=== PATIENT | male | born 1945 | race Caucasian/White ===

== ENCOUNTER 2017-07-14 20:30 | Outpatient (CLI) | payer MEDICARE | END 2017-07-14 20:31 | disposition home or self-care (01) | LOC: SLEEPLAB 20:30 | PROVIDERS: ATTEND Internal Medicine Critical Care Medicine | DX: G47.33 Obstructive sleep apnea (adult) (pediatric) (principal); E66.9 Obesity, unspecified; I10 Essential (primary) hypertension; K21.9 Gastro-esophageal reflux disease without esophagitis; I25.10 Atherosclerotic heart disease of native coronary artery without angina pectoris | CPT/HCPCS: 95811 ==

== ENCOUNTER 2017-08-17 08:52 | Emergency (ER) | payer MEDICARE ==
[2017-08-17 09:44] LABS: Anion Gap 14 mmol/L (10-20); BUN (Urea Nitrogen) 20 mg/dL (8.4-25.7); Calc. Creatinine Clearance 0 mL/min (70-130); Calcium 9.5 mg/dL (7.8-10.44); Carbon Dioxide 25 mmol/L (23-31); Chloride 104 mmol/L (98-107); Estimated GFR-MDRD 56; Glucose 123 mg/dL (83-110); Potassium 4.2 mmol/L (3.5-5.1); Sodium 139 mmol/L (136-145); Uric Acid 8.2 mg/dL (3.5-7.2)
[2017-08-17] MEDS ORDERED: Colchicine 0.6 MG TAB ONE (09:56)
== END 2017-08-17 10:08 | disposition home or self-care (01) ==
LOC: SCSER 08:52
DX: M10.9 Gout, unspecified (principal); I25.10 Atherosclerotic heart disease of native coronary artery without angina pectoris; I10 Essential (primary) hypertension; Z79.82 Long term (current) use of aspirin; Z79.899 Other long term (current) drug therapy
CPT/HCPCS: 36415; 80048; 84550; 86140; 99283

== ENCOUNTER 2018-08-22 08:59 | Outpatient (CLI) | payer MEDICARE ==
--- NOTE | 2018-08-22 09:28 | RAD ---
LEFT HIP TWO VIEWS: History: Left hip pain, unspecified osteoarthritis. FINDINGS/IMPRESSION: There are mild to moderate degenerative changes. No fracture, dislocation, or bony destruction is herrera ntified. POS: OFF
== END 2018-08-22 09:00 | disposition home or self-care (01) ==
LOC: BICRAD 08:59
PROVIDERS: ATTEND Anesthesiology Pain Medicine
DX: M16.12 Unilateral primary osteoarthritis, left hip (principal)

== ENCOUNTER 2020-06-30 14:31 | Outpatient (CLI) | payer MEDICARE ==
--- NOTE | 2020-06-30 16:04 | MRI ---
Exam: MRI cervical spine without contrast HISTORY: Neck pain, radiating to both shoulders x1 year. Spondylosis. COMPARISON: None FINDINGS: Appropriate T1 marrow signal intensity of the cervical vertebra. Cervical spine vertebral body heigh t is maintained. No fracture. No significant STIR hyperintensity to suggest vertebral body edema or ligamentous injury Visualized brain parenchyma, cervicomedullary junction, cervical cord and the upper thoracic cord hav e a normal size and signal intensity C2-C3: Disc desiccation without significant loss of disc space height. Central disc herniation. Mild central canal stenosis. Patent bilateral neural foramina C3-C4: Disc desiccation with severe loss of disc space height. Broad-based disc osteophyte complex. Moderate central canal stenosis. Mild to moderate bilateral neural foraminal narrowing due to uncovertebral hypertrophy. C4-C5: Disc desiccation without significant loss of disc space height. Broad-based disc bulge abuts t he thecal sac. Mild central canal stenosis. Mild bilateral neural foraminal narrowing due to uncal vertebral hypertrophy C5-C6: Disc desiccation with severe loss of disc space height. Broad-based disc osteophyte complex wi th moderate central canal stenosis. Moderate to severe right and mild left neural foraminal narrowing due to uncovertebral hypertrophy C6-C7: Disc desiccation without significant loss of disc space height. Broad-based disc bulge. No sig nificant central canal stenosis. Patent bilateral neural foraminal C7-T1: Disc desiccation without significant loss of disc space height. No significant central canal s tenosis or significant neural foraminal narrowing Spondylolisthesis: C3-C4: 2.2 mm of retrolisthesis C6-C7: 2.1 mm of anterolisthesis IMPRESSION: Multilevel degenerative changes of the cervical spine as described above. Transcribed Date/Time: 06/30/2020 4:21 PM
== END 2020-06-30 14:32 | disposition home or self-care (01) ==
LOC: BICMRI 14:31
PROVIDERS: ATTEND Nurse Practitioner Family
DX: M47.812 Spondylosis without myelopathy or radiculopathy, cervical region (principal)
CPT/HCPCS: 72141

== ENCOUNTER 2020-10-24 10:30 | Outpatient (CLI) | payer MEDICARE | END 2020-10-24 10:31 | disposition home or self-care (01) | LOC: BICRAD 10:30 | PROVIDERS: ATTEND Anesthesiology Pain Medicine | DX: M54.5 Low back pain (principal); M43.17 Spondylolisthesis, lumbosacral region; M43.8X6 Other specified deforming dorsopathies, lumbar region; I70.209 Unspecified atherosclerosis of native arteries of extremities, unspecified extremity; M47.816 Spondylosis without myelopathy or radiculopathy, lumbar region; Z96.642 Presence of left artificial hip joint; W19.XXXA Unspecified fall, initial encounter | CPT/HCPCS: 72110; 72170; 72220 ==

== ENCOUNTER 2022-04-09 08:07 | Observation (INO) | payer MEDICARE ==
[2022-04-09 08:51] LABS: #Eosinphils 0.3 thou/uL (0.0-0.7); #Lymphocytes 1.4 thou/uL (1.20-3.40); #Monocytes 0.5 thou/uL (0.11-0.59); #Neutrophils 4.1 thou/uL (1.40-6.50); %Basophils 0.1 % (0.0-1.0); %Eosinophils 4.2 % (0.0-10.0); %Monocytes 8.1 % (0.0-10.0); %Neutrophils 65.5 % (42.0-75.0); Hemoglobin 9.6 g/dL (14.0-18.0); Mean Corpuscular HGB CONC 30.3 g/dL (32.0-36.0); Mean Corpuscular Hemoglobin 25.5 pg (27.0-31.0); Mean Corpuscular Volume 84.2 fL (78.0-98.0); Mean Platelet Volume 7.9 fL (7.4-10.4); Platelet Count 149 thou/uL (130-400); RBC Distribution Width 13.5 % (11.5-14.5); Red Blood Cell (RBC) Count 3.75 mill/uL (4.70-6.10); White Blood Cell (WBC) Count 6.2 thou/uL (4.8-10.8)
[2022-04-09 09:10] LABS: ALT (SGPT) 12 U/L (8-55); AST (SGOT) 19 U/L (5-34); Albumin 3.9 g/dL (3.4-4.8); Alkaline Phosphatase 90 U/L (40-110); Anion Gap 12 mmol/L (10-20); BUN (Urea Nitrogen) 14 mg/dL (8.4-25.7); Bilirubin, Total 0.7 mg/dL (0.2-1.2); Calc. Creatinine Clearance 0 mL/min (70-130); Calcium 8.8 mg/dL (7.8-10.44); Carbon Dioxide 22 mmol/L (23-31); Chloride 107 mmol/L (98-107); Estimated GFR 90; Globulin 3.5 g/dL (2.4-3.5); Glucose 113 mg/dL (83-110); Protein, Total 7.4 g/dL (5.8-8.1); Sodium 137 mmol/L (136-145)
[2022-04-09 09:37] LABS: Bilirubin Negative (Negative); Blood, Urine Negative (Negative); Clarity Clear (Clear); Glucose, Urine (Dipstick) Normal (Negative); Ketone, Urine Negative (Negative); Leukocyte Negative Leu/uL (Negative); Nitrite Negative (Negative); Protein, Urine (Dipstick) Negative (Neg-Trace); Specific Gravity, Urine 1.014 (1.002-1.036); Urobilinogen Normal mg/dL (Less than 2)
[2022-04-09] MEDS ORDERED: Ondansetron PF 4 MG/2 ML Vial IVP PRN (13:15)
[2022-04-09] MEDS ORDERED: Senokot S 8.6-50 MG TAB PO PRN (13:15)
[2022-04-09] MEDS ORDERED: Ondansetron ODT 4 MG TAB PO PRN (13:15)
[2022-04-09 13:38] LABS: SARS-CoV-2 NAA Rapid Test Not Detected (NotDetected)
[2022-04-09] MEDS ORDERED: Nitroglycerin 0.4 MG TAB (25 Tab Bottle) SL PRN (13:46)
[2022-04-09 17:34] VITALS: BMI 28.5
[2022-04-09] MEDS ORDERED: Pitavastatin Calcium 2 MG TAB PO SCH (21:00)
[2022-04-09] MEDS ORDERED: Non-Formulary Item 1 EACH (Esomeprazole Magnesium [Nexium] 20 MG Capsule.Dr) PO SCH (21:00)
[2022-04-09] MEDS: Carvedilol 6.25 MG TAB PO SCH (21:20)
[2022-04-09] MEDS: Atorvastatin Calcium 20 MG TAB PO SCH (21:20)
[2022-04-09] MEDS: Apixaban 5 MG TAB PO SCH (21:21)
[2022-04-09] MEDS: Fish Oil 1,000 MG CAP PO SCH (21:21)
[2022-04-10 05:22] LABS: #Eosinphils 0.3 thou/uL (0.0-0.7); #Lymphocytes 1.8 thou/uL (1.20-3.40); #Monocytes 0.8 thou/uL (0.11-0.59); #Neutrophils 3.6 thou/uL (1.40-6.50); %Basophils 0.5 % (0.0-1.0); %Eosinophils 4.2 % (0.0-10.0); %Lymphocytes 27.6 % (21.0-51.0); %Monocytes 11.9 % (0.0-10.0); %Neutrophils 55.8 % (42.0-75.0); Hemoglobin 8.6 g/dL (14.0-18.0); Mean Corpuscular HGB CONC 30.6 g/dL (32.0-36.0); Mean Corpuscular Hemoglobin 25.8 pg (27.0-31.0); Mean Corpuscular Volume 84.3 fl (78.0-98.0); Platelet Count 151 thou/uL (130-400); RBC Distribution Width 13.6 % (11.5-14.5); Red Blood Cell (RBC) Count 3.34 mill/uL (4.70-6.10); White Blood Cell (WBC) Count 6.4 thou/uL (4.8-10.8)
[2022-04-10 05:47] LABS: Anion Gap 11 mmol/L (10-20); BUN (Urea Nitrogen) 13 mg/dL (8.4-25.7); Calc. Creatinine Clearance 102 mL/min (70-130); Calcium 8.9 mg/dL (7.8-10.44); Carbon Dioxide 25 mmol/L (23-31); Cardiac Risk 2.5 (Less than 4.5); Chloride 105 mmol/L (98-107); Cholesterol 116 mg/dl (< 200 Desired); Estimated GFR 91; Glucose 114 mg/dL (83-110); HDL Cholesterol 47 mg/dL (>60 Neg Risk); LDL Cholesterol, Calculated 57 mg/dL; Sodium 137 mmol/L (136-145); Triglycerides 62 mg/dL (Less than 150)
[2022-04-10] MEDS: Carvedilol 6.25 MG TAB PO SCH ×2 (09:40→21:35)
[2022-04-10] MEDS: Aspirin 81 mg Enteric Coated Tablet PO SCH (09:42)
[2022-04-10] MEDS: Allopurinol 300 MG TAB PO SCH (09:42)
[2022-04-10] MEDS: Apixaban 5 MG TAB PO SCH ×2 (09:42→21:34)
[2022-04-10] MEDS: Acetaminophen 325 MG TAB PO PRN (16:03)
[2022-04-10] MEDS: Atorvastatin Calcium 20 MG TAB PO SCH (21:34)
[2022-04-10] MEDS: Fish Oil 1,000 MG CAP PO SCH (21:35)
[2022-04-11 05:21] LABS: #Eosinphils 0.3 thou/uL (0.0-0.7); #Monocytes 0.8 thou/uL (0.11-0.59); #Neutrophils 3.6 thou/uL (1.40-6.50); %Basophils 0.4 % (0.0-1.0); %Eosinophils 4.6 % (0.0-10.0); %Lymphocytes 29.4 % (21.0-51.0); %Monocytes 11.2 % (0.0-10.0); %Neutrophils 54.4 % (42.0-75.0); Mean Corpuscular Volume 83.9 fl (78.0-98.0); Platelet Count 153 thou/uL (130-400); RBC Distribution Width 13.7 % (11.5-14.5); Red Blood Cell (RBC) Count 3.45 mill/uL (4.70-6.10); White Blood Cell (WBC) Count 6.7 thou/uL (4.8-10.8)
[2022-04-11 06:52] LABS: Anion Gap 13 mmol/L (10-20); BUN (Urea Nitrogen) 10 mg/dL (8.4-25.7); Calc. Creatinine Clearance 97 mL/min (70-130); Calcium 8.8 mg/dL (7.8-10.44); Carbon Dioxide 24 mmol/L (23-31); Chloride 104 mmol/L (98-107); Estimated GFR 90; Glucose 111 mg/dL (83-110); Potassium 3.6 mmol/L (3.5-5.1); Sodium 137 mmol/L (136-145)
[2022-04-11 07:53] VITALS: TEMP 98.3
[2022-04-11] MEDS: Allopurinol 300 MG TAB PO SCH (08:28)
[2022-04-11] MEDS: Aspirin 81 mg Enteric Coated Tablet PO SCH (08:28)
[2022-04-11] MEDS: Apixaban 5 MG TAB PO SCH (08:28)
[2022-04-11] MEDS: Carvedilol 6.25 MG TAB PO SCH (08:28)
[2022-04-11 08:29] VITALS: BP 152/74
[2022-04-11] MEDS: Acetaminophen 325 MG TAB PO PRN (09:16)
== END 2022-04-11 11:45 | disposition home or self-care (01) ==
LOC: ERS 08:07 → ERHOLD 12:38 → NEURO 16:57
PROVIDERS: ADMIT Internal Medicine; ATTEND Internal Medicine
DX: R42 Dizziness and giddiness (principal); D64.9 Anemia, unspecified; R73.9 Hyperglycemia, unspecified; I10 Essential (primary) hypertension; I48.20 Chronic atrial fibrillation, unspecified; K21.9 Gastro-esophageal reflux disease without esophagitis; I25.10 Atherosclerotic heart disease of native coronary artery without angina pectoris; E78.5 Hyperlipidemia, unspecified; I08.8 Other rheumatic multiple valve diseases; Z79.01 Long term (current) use of anticoagulants; Z79.82 Long term (current) use of aspirin; Z79.899 Other long term (current) drug therapy; Z88.5 Allergy status to narcotic agent; Z91.048 Other nonmedicinal substance allergy status; Z95.0 Presence of cardiac pacemaker; Z95.5 Presence of coronary angioplasty implant and graft; Z20.822 Contact with and (suspected) exposure to COVID-19
CPT/HCPCS: 70450; 70551; 71045; 80048 ×2; 80053; 80061; 81003; 84484; 85025 ×3; 93005; 93306; 93880; 99285; G0378 ×4; U0002; 36415

== ENCOUNTER 2024-07-08 10:14 | Emergency (ER) | payer MEDICARE | END 2024-07-08 13:53 | disposition home or self-care (01) | LOC: ERS 10:14 | DX: S01.112A Laceration without foreign body of left eyelid and periocular area, initial encounter (principal); I10 Essential (primary) hypertension; I25.10 Atherosclerotic heart disease of native coronary artery without angina pectoris; Z55.0 Illiteracy and low-level literacy; W01.10XA Fall on same level from slipping, tripping and stumbling with subsequent striking against unspecified object, initial encounter; Y93.01 Activity, walking, marching and hiking | CPT/HCPCS: 70450; 70486; 72125; G0390 ==

== ENCOUNTER 2024-07-10 19:16 | Emergency (ER) | payer MEDICARE ==
[2024-07-10] MEDS ORDERED: Tranexamic Acid 1,000 MG/10 ML VIAL ONE (22:20)
[2024-07-10] MEDS ORDERED: Lidocaine 1% w/Epinephrine 1:100K 20 ML VIAL ONE (22:20)
[2024-07-10] MEDS ORDERED: Acetaminophen 500 MG TAB ONE (22:20)
[2024-07-10] MEDS ORDERED: Bacitracin 1 PK ONE (23:23)
== END 2024-07-10 23:41 | disposition home or self-care (01) ==
LOC: ERS 19:16
DX: S01.111A Laceration without foreign body of right eyelid and periocular area, initial encounter (principal); I10 Essential (primary) hypertension; I25.10 Atherosclerotic heart disease of native coronary artery without angina pectoris; I48.91 Unspecified atrial fibrillation; Z79.01 Long term (current) use of anticoagulants; W01.198A Fall on same level from slipping, tripping and stumbling with subsequent striking against other object, initial encounter; Y93.89 Activity, other specified; Y92.481 Parking lot as the place of occurrence of the external cause

== ENCOUNTER 2024-07-15 14:30 | Emergency (ER) | payer MEDICARE | END 2024-07-15 17:14 | disposition home or self-care (01) | LOC: ERS 14:30 | DX: S01.81XA Laceration without foreign body of other part of head, initial encounter (principal); I10 Essential (primary) hypertension; X58.XXXA Exposure to other specified factors, initial encounter | CPT/HCPCS: 70480 ==

== ENCOUNTER 2025-05-25 10:04 | Outpatient (CLI) | payer MEDICARE | END 2025-05-25 10:05 | disposition home or self-care (01) | LOC: RAD 10:04 | PROVIDERS: ATTEND Internal Medicine Critical Care Medicine | DX: R06.00 Dyspnea, unspecified (principal) | CPT/HCPCS: 71046 ==